=== PATIENT | female | born 1970 | race Two or more races ===

== ENCOUNTER 2024-12-11 16:17 | Emergency (ER) | payer SELFPAY ==
[~2024-12-11] VITALS: Ht 177.8 cm; Wt 68.0 kg
[2024-12-11 16:39] VITALS: BP 145/83; TEMP 98.2; O2SAT 97
== END 2024-12-11 18:38 | disposition left against medical advice (07) ==
LOC: ER 16:54
DX: M54.9 Dorsalgia, unspecified (principal); Z53.21 Procedure and treatment not carried out due to patient leaving prior to being seen by health care provider